=== PATIENT | female | born 1955 | race Caucasian/White ===

== ENCOUNTER 2017-01-18 12:55 | Emergency (ER) | payer OTHER ==
--- NOTE | ~2017-01-18 | CR72 ---
[facility] A Service of [facility] & [facility] RADIOLOGY TEXT RESULTS PATIENT: KEITH MCQUEEN LOCATION: [facility] : 53 UNIT #: [id number] AGE: [address]: Placido Matos DO SEX: F ORDER DR: [id number] [facility] [address] [place], [place] [address] [id number] MR#: [id number] #: [id number] NAME: KEITH MCQUEEN : 1955 SEX: F STUDY DATE/TIME: 01/18/2017 12:04 UNIT: [facility] ROOM: STUDY DESCRIPTION: CR Chest Single View Portable Attending Physician: Placido Matos D.O. Referring Physician: Self Referral-Refer Use Only Ordering Physician: Placido Matos D.O. Primary Care Physician: Primary Care Physician No MEDICAL IMAGING REPORT This report is preliminary unless electronic signature is present EXAM Portable chest, 01/18 INDICATION Shortness of air after huffing pain today. Current smoker. FINDINGS AP portable chest was obtained. No comparison. The heart is enlarged. There is some mild atelectasis or infiltrate in the bases. Lungs otherwise are clear and there is no pneumothorax. IMPRESSION Cardiomegaly with mild infiltrate or atelectasis in the bases. Dictated by... Ronn Wells Jr., M.D. THIS IS AN ELECTRONICALLY VERIFIED REPORT Ronn Wells Jr., M.D. at 01/18/2017 4:49 PM RAMIN/ed TD: 01/18/2017 14:27 JOB #: [id number] MEDICAL IMAGING REPORT Page 1 of 1 COPY
--- NOTE | ~2017-01-18 | EKG ---
PATIENT: KEITH MCQUEEN UNIT #: [id number] Ventricular Rate: 75 BPM Atrial Rate: 75 BPM P-R Interval: 196 ms QRS Duration: 86 ms Q-T Interval: 386 ms QTC Calculation(Bezet): 431 ms P [place]: -14 degrees Calculated R [place]: -18 degrees Calculated T [place]: 158 degrees Diagnosis Line: Sinus rhythm with marked sinus arrhythmia Diagnosis Line: Left ventricular hypertrophy with repolarization Diagnosis Line: abnormality Diagnosis Line: Abnormal ECG Diagnosis Line: No previous ECGs available Diagnosis Line: Confirmed by DENISE COTTON MD ([id number]) on 01/18/2017 Diagnosis Line: 11:06:57 PM INTERPRETING MD: YURY TREVIZO
[2017-01-18 12:21] LABS: POC - CKMB 2.3 ng/mL (0.0-7.9); POC - TROPONIN <0.05 ng/mL (<=0.05)
[2017-01-18 12:28] LABS: BASOPHIL# 0.1 X10e3 (0-0.3); BASOPHIL% 0.9 % (0-2.5); EOSINOPHIL# 0.1 X10e3 (0-0.7); EOSINOPHIL% 1.1 % (0.0-7.0); HEMATOCRIT 41.6 % (35.0-45.0); HEMOGLOBIN 13.7 gm/dL (12.0-16.0); LYMPHOCYTE# 1.5 X10e3 (1.0-3.5); LYMPHOCYTE% 19.7 % (17.0-45.0); MEAN CELL VOLUME 87.8 FL (83-96); MEAN CORPUSCULAR HEMOGLOBIN 28.9 PG (28-34); MEAN CORPUSCULAR HGB CONC 32.9 g/dL (30-36); MEAN PLATELET VOLUME 7.9 FL (6.5-11.5); MONOCYTE# 0.6 X10e3 (0-1.0); MONOCYTE% 7.8 % (3.0-12.0); NEUTROPHIL# 5.2 X10e3 (1.5-7.1); NEUTROPHIL% 70.5 % (40-75); PLATELET COUNT 255 X10e3 (140-420); RED BLOOD COUNT 4.73 X10e (3.90-5.30); RED CELL DISTRIBUTION WIDTH 13.6 % (11.0-15.5); WHITE BLOOD COUNT 7.4 X10e3 (4.0-10.5)
[2017-01-18 12:31] LABS: DIFF IND NO
[2017-01-18 12:51] LABS: ALBUMIN SERUM 3.8 g/dL (3.5-5.0); ALKALINE PHOSPHATASE 68 U/L (32-92); ALT (SGPT) 40 U/L (10-40); AST (SGOT) 32 U/L (10-42); BILIRUBIN,TOTAL 0.5 mg/dL (0.2-2.0); BLOOD UREA NITROGEN 16 mg/dL (9-23); BUN/CREATININE RATIO 17.77; CALCIUM SERUM 9.1 mg/dL (8.4-10.2); CARBON DIOXIDE 22 mmol/L (22-31); CHLORIDE 109 mmol/L (100-111); CREATININE SERUM 0.9 mg/dL (0.6-1.4); GLOM FILT RATE Estimated 68.6 mL/min (>60); GLUCOSE FASTING 125 mg/dL (70-110); POTASSIUM 3.8 mmol/L (3.5-5.1); SALICYLATE <4.0 mg/dL; SODIUM 142 mmol/L (135-145)
[2017-01-18 13:04] LABS: ACETAMINOPHEN <10 ug/mL; ALCOHOL BLOOD <5 mg/dL (0)
[2017-01-18 14:38] LABS: URINE SOURCE CLEAN CATCH
[2017-01-18 14:47] LABS: URINE APPEARANCE CLEAR; URINE BILIRUBIN NEG (NEG); URINE BLOOD NEG (NEG); URINE COLOR YELLOW; URINE GLUCOSE NEG (NEG); URINE KETONE NEG (NEG); URINE LEUKOCYTE ESTERASE NEG (NEG); URINE NITRATE NEG (NEG); URINE PROTEIN 1+ (NEG); URINE SPECIFIC GRAVITY 1.016 (1.003-1.035); URINE UROBILINOGEN 0.2 MG/DL (NEG)
[2017-01-18 14:50] LABS: URINE BACTERIA AUWI NEG (NEGATIVE); URINE SQUAMOUS EPITHELIAL CELL OCC /[HPF]
[2017-01-18 15:14] LABS: CULTURE INDICATED? NO
[2017-01-18 15:15] LABS: AMPHETAMINE NEG (NEG); BARBITURATES NEG (NEG); BENZODIAZEPINES NEG (NEG); COCAINE NEG (NEG); MARIJUANA NEG (NEG); OPIATES NEG (NEG); TRICYCLIC ANTIDEPRESSANTS NEG (NEG); U METHADONE NEG (NEG)
== END 2017-01-18 16:15 | disposition home or self-care (01) ==
LOC: CED 12:55
PROVIDERS: Emergency Medicine
DX: I10 Essential (primary) hypertension (principal)
CPT/HCPCS: 36415; 71010; 80053; 80307; 81003; 82553; 83880; 84484; 85025; 93005; 99283; G0480